=== PATIENT | female | born 1965 | race Caucasian/White ===

== ENCOUNTER → 2016-09-28 | Outpatient (CLI) | payer BC | LOC: MC.RAD 07:20 | DX: Z12.31 Encounter for screening mammogram for malignant neoplasm of breast (principal) ==

== ENCOUNTER 2017-12-27 12:24 | Inpatient (IN) | payer BC ==
[~2017-12-27] VITALS: Ht 167.6 cm; Wt 90.7 kg
[2018-02-10] VITALS (10 sets, daily range): BP systolic 108–121; BP diastolic 53–72; PULSE 61–84; TEMP 97.8–98
[2018-02-10] MEDS ORDERED: WELLBUTRIN XL150 MG PO (06:05)
[2018-02-10] MEDS ORDERED: DESYREL 100MG100 MG PO (06:06)
[2018-02-11 01:14] VITALS: BP 122/64; PULSE 71; TEMP 98.5
[2018-02-11 04:33] VITALS: BP 103/49; PULSE 80; TEMP 97.9
[2018-02-11 06:32] LABS: HEMOGLOBIN 11.3 g/dl (12.5-16.0)
[2018-02-11 06:34] LABS: HEMATOCRIT 34.7 % (37.0-47.0)
[2018-02-11 13:00] VITALS: BP 121/65; PULSE 68; TEMP 97.9
[2018-02-11 20:12] VITALS: BP 131/61; PULSE 74; TEMP 97.8
[2018-02-12 00:08] VITALS: BP 131/60; PULSE 79; TEMP 97.6
[2018-02-12 04:30] VITALS: BP 119/59; PULSE 81; TEMP 98.1
[2018-02-12 06:04] LABS: HEMOGLOBIN 11.6 g/dl (12.5-16.0)
[2018-02-12 06:23] LABS: HEMATOCRIT 36.3 % (37.0-47.0)
[2018-02-12] MEDS ORDERED: ASPI325T6 PO (07:17)
[2018-02-12] MEDS ORDERED: NORCO 325 MG-7.1 TAB PO (07:18)
[2018-02-12] MEDS ORDERED: ROXICODONE 55 MG/TAB PO (07:19)
[2018-02-12] MEDS ORDERED: COLACE 100100 MG/CAP PO (07:19)
[2018-02-12 07:44] VITALS: BP 106/54; PULSE 88; TEMP 97.8
[2018-02-12 11:55] VITALS: BP 108/71; PULSE 74; TEMP 97.9
[2018-02-12 16:39] VITALS: BP 118/46; PULSE 77; TEMP 97.7
== END 2018-02-12 17:20 | disposition home or self-care (01) | DRG 470 ==
LOC: JCC 02-10 05:12 → SURG 02-11 11:52
PROVIDERS: Orthopaedic Surgery
PROC: 0SRC0J9 Replacement of Right Knee Joint with Synthetic Substitute, Cemented, Open Approach (ICD-10-PCS; principal; 2018-02-10 07:30)
DX: M17.11 Unilateral primary osteoarthritis, right knee (principal); F33.9 Major depressive disorder, recurrent, unspecified; E78.5 Hyperlipidemia, unspecified; I15.8 Other secondary hypertension; G25.81 Restless legs syndrome; E78.1 Pure hyperglyceridemia
CPT/HCPCS: A4314; A9284; C1713; C1776; J1100; J2250; J2405; J2704; J3010; J3370; J7030; J7050; J7120

== ENCOUNTER → 2018-01-02 | Outpatient (CLI) | payer BC | LOC: MC.RAD 16:35 | DX: Z12.31 Encounter for screening mammogram for malignant neoplasm of breast (principal) ==

== ENCOUNTER → 2018-01-27 | Outpatient (CLI) | payer BC | LOC: COL.LAB 09:20 | DX: Z01.812 Encounter for preprocedural laboratory examination (principal) ==

== ENCOUNTER → 2018-02-04 | Outpatient (CLI) | payer BC ==
[2018-02-04 18:13] LABS: COLLECTION METHOD CLEAN CATCH
[2018-02-04 18:29] LABS: PH 6 (5-8); SQUAMOUS EPITHELIAL 0-2 /hpf; URINE APPEARANCE Clear; URINE BACTERIA None Seen /hpf; URINE BILIRUBIN Negative (NEGATIVE); URINE BLOOD Negative (NEGATIVE); URINE COLOR Straw; URINE GLUCOSE Negative (NEGATIVE); URINE KETONE Negative (NEGATIVE); URINE LEUKOCYTE ESTERASE Negative (NEGATIVE); URINE NITRATE Negative (NEGATIVE); URINE PROTEIN(semi-quant) Negative (NEGATIVE); URINE RBC None Seen /hpf; URINE UROBILINOGEN Negative (NEGATIVE)
== END ==
LOC: COL.LAB 15:58
PROVIDERS: Orthopaedic Surgery
DX: Z01.818 Encounter for other preprocedural examination (principal); Z86.14 Personal history of Methicillin resistant Staphylococcus aureus infection

== ENCOUNTER 2018-03-24 07:44 | Day surgery (SDC) | payer BC ==
[~2018-03-24] VITALS: Ht 167.6 cm; Wt 94.0 kg
[~2018-03-24 07:44] MED LIST: ASPI325T6 PO; COLACE 100100 MG/CAP PO; DESYREL 100MG100 MG PO; NORCO 325 MG-7.1 TAB PO; ROXICODONE 55 MG/TAB PO; WELLBUTRIN XL150 MG PO
[2018-03-24 08:09] VITALS: BP 132/73; PULSE 85; TEMP 98.1
--- NOTE | 2018-03-24 09:48 | NUR ---
Patient assisted to restroom and returns to room. Denies any needs at this time.
[2018-03-24 10:30] VITALS: BP 117/51; PULSE 75; TEMP 98.5
--- NOTE | 2018-03-24 10:30 | NUR ---
Patient arrives to [facility] [place] [facility] via cart, accompanied by PHYSICAL SECURITY ENGINEERTAWANDA Little. Bedside report received. Patient is alert and oriented. RLE neurovascular assessment is WNL. Ice pack on R knee. Patient complains of mild pain 4/10. Offered and receives water and a muffin to eat - tolerates well. Family at the bedside. VSS and WNL on room air.
[2018-03-24 10:45] VITALS: BP 110/61; PULSE 79
--- NOTE | 2018-03-24 10:45 | NUR ---
VSS and WNL on room air. Given PRN [place] for mild pain 4/10 ("tolerable", per patient), and PRN Zofran, as [place] historically makes patient nauseous (per patient). Otherwise resting comfortably in room.
[2018-03-24 11:00] VITALS: BP 127/70; PULSE 75
--- NOTE | 2018-03-24 11:00 | NUR ---
VSS and WNL on room air. Resting comfortably in room. Denies any needs. Pain is "mild and tolerable".
--- NOTE | 2018-03-24 11:20 | NUR ---
Discharge criteria met. Discharge instructions discussed, denies any questions, and verbalizes understanding. PIV removed with catheter intact and hemostasis achieved. Patient changes to clothing independently. Escorted to exit via wheelchair. Discharged to home with ride in private vehicle at 1120.
== END 2018-03-24 11:20 | disposition home or self-care (01) ==
LOC: SDCO 07:44
DX: M24.661 Ankylosis, right knee (principal); Z96.651 Presence of right artificial knee joint; Z79.899 Other long term (current) drug therapy
CPT/HCPCS: J1100; J1885; J2405; J2704; J3010; J7120

== ENCOUNTER → 2019-03-02 | Outpatient (CLI) | payer BC | LOC: MC.RAD 01-01 07:15 | DX: Z12.31 Encounter for screening mammogram for malignant neoplasm of breast (principal) ==

== ENCOUNTER → 2020-03-30 | Outpatient (CLI) | payer BC | LOC: MC.RAD 07:59 | DX: Z12.31 Encounter for screening mammogram for malignant neoplasm of breast (principal) ==

== ENCOUNTER → 2022-05-10 | Outpatient (CLI) | payer BC | LOC: MC.RAD 07:24 | DX: Z12.31 Encounter for screening mammogram for malignant neoplasm of breast (principal) ==

== ENCOUNTER 2022-10-31 05:34 | Day surgery (SDC) | payer BC ==
[2022-10-30 15:00] LABS: COLLECTION METHOD CLEAN CATCH
[2022-10-30 15:06] LABS: HEMATOCRIT 39.9 % (37.0-47.0); HEMOGLOBIN 13.1 g/dl (12.5-16.0); MEAN CELL VOLUME 92 fl (80.0-100.0); MEAN CORPUSCULAR HEMOGLOBIN 30 pg (27-31); MEAN CORPUSCULAR HGB CONC 33 g/dl (33.0-37.0); MEAN PLATELET VOLUME 9.9 fl (7.4-10.4); PLATELET COUNT 304 K/mm3 (130-400); RED BLOOD COUNT 4.33 M/mm3 (4.10-5.30); REDCELL DISTRIBUTION WIDTH-CV 13.2 % (11.5-14.5)
[2022-10-30 15:07] LABS: URINE APPEARANCE Clear (CLEAR/HAZY); URINE BLOOD Negative (NEGATIVE); URINE COLOR Yellow (YELLOW); URINE GLUCOSE Negative (NEGATIVE); URINE KETONE Negative (NEGATIVE); URINE NITRATE Negative (NEGATIVE); URINE PROTEIN(semi-quant) Negative (NEGATIVE); URINE UROBILINOGEN 0.2 E.U/dL (0.2-1.0)
[2022-10-30 15:16] LABS: MUCOUS Present (NOT PRESENT); URINE BACTERIA None Seen /hpf (NONE SEEN); URINE RBC 0-2 /hpf (0-2)
[2022-10-30 15:26] LABS: ALBUMIN 3.7 gm/dL (3.5-5.0); BILIRUBIN,TOTAL 0.4 mg/dL (0.2-1.2); CALCIUM 9.2 mg/dL (8.4-10.2); CREATININE, serum 1.11 mg/dL (0.57-1.11); POTASSIUM 3.7 mmol/L (3.5-4.5); TOTAL PROTEIN 6.8 gm/dL (6.2-8.1)
[2022-10-31] VITALS (15 sets, daily range): BP systolic 100–133; BP diastolic 49–67; PULSE 62–84; TEMP 97.9–98.2
[~2022-10-31] VITALS: Ht 167.6 cm; Wt 99.4 kg
[2022-10-31] MEDS ORDERED: VESICARE10 MG PO (06:12)
[2022-10-31] MEDS ORDERED: ALLEGRA 180MG180 MG PO (06:12)
[2022-10-31] MEDS ORDERED: DESYREL 100MG100 MG PO (06:13)
--- NOTE | 2022-10-31 13:39 | NUR ---
Patient arrived to the unit from pacu at 1150. Patient alert and oriented. 5 lap site in abdomen dry and intact on no drainage noted on site with the bandaid. Patient requested to use the bathroom and assisted patient to the bathroom. Patient voided moderate amount of pink urine in the commode and assisted back to bed. Assessment completed, Lungs CTA, Bowel sound hypoactive. IVF of LR infusing on gravity, no redness noted at IVF site. Patient reports of severe pain and burning sensation at both eyes. Dr. Carranza notified and ordered gentamincin and refresh eye drops. Patient and family oriented on the use of call bridges for an assistance.
--- NOTE | 2022-10-31 21:00 | NUR ---
PT UP TO BR WITH FAMILY ASSIST. VOIDED W/O DIFFICULTY. PT HAS SMALL AMT VAG BLEEDING. PAIN LEVEL 4/10. WANTS TO WAIT TILL SCHEDULED PAIN MED. PT STILL HAVING EYE IRRITATION BUT BETTER. CONTINUE WITH GENTAMYCING OINMETN AND REFRESH EYE GTTS. CALL LIGHT IN REACH. BED ALARM SET.
[2022-11-01 00:31] VITALS: BP_SYST 105
[2022-11-01 03:11] VITALS: BP 93/44; PULSE 61; TEMP 97.8
[2022-11-01 04:50] VITALS: BP_SYST 93
[2022-11-01 05:01] VITALS: BP 99/43
[2022-11-01 07:48] VITALS: BP 112/54; PULSE 66; TEMP 98.4
--- NOTE | 2022-11-01 08:00 | NUR ---
PT LAYING IN BED COMFORTABLE SPEAKING WITH OB SURGEON THIS AM ABT POSSIBLE DC HOME TODAY. PT IS AGREEABLE AND ANXIOUS TO GET HOME. DENIES PAIN OR NAUSEA AT THIS TIME ONLY REQUESTING SODA HER MORNING BEVERAGE OF CHOICE. TOLERATED HER BREAKFAST WELL AND MORNING MEDS ADMINISTERED.
[2022-11-01] MEDS ORDERED: ROXICODONE 55 MG/TAB PO (08:31)
[2022-11-01] MEDS ORDERED: IBU600 MG PO (08:32)
[2022-11-01 09:00] VITALS: BP_SYST 112
--- NOTE | 2022-11-01 09:40 | NUR ---
REMOVED IV,PT PUT ON CLOTHES FROM HOME AND PT SISTER ARRIVED TO DRIVE HER HOME IN PRIVATE VEHICLE PT INFORMED OF DISCHARGE INSTRUCTIONS, QUESTIONS ANSWERED. PT VERBALIZED UNDERSTANDING OF D/C INSTRUCTIONS.
--- NOTE | 2022-11-01 09:57 | NUR ---
PT LEFT IN PRIVATE VEHICLE WITH SITER AT [id number]
== END 2022-11-01 09:45 | disposition home or self-care (01) ==
LOC: SDCO 05:34 → SURG 12:05 → SDCO 11-01 09:45
PROVIDERS: Obstetrics & Gynecology
DX: N81.3 Complete uterovaginal prolapse (principal); N81.6 Rectocele; N95.1 Menopausal and female climacteric states; R39.15 Urgency of urination
CPT/HCPCS: OP; A4314; A9284; C1781; J0665; J0690; J1100; J1650; J1885; J2371; J2405; J2704; J3010; J7120